=== PATIENT | female | born 1965 | race Caucasian/White ===

== ENCOUNTER 2020-10-14 06:30 | Emergency (ER) | payer MEDICAID, MEDICARE ==
--- NOTE | 2020-10-14 07:21 | EDM.PDOC ---
ED HPI GENERAL MEDICAL PROBLEM - General Chief Complaint: Upper Extremity Injury/Pain Stated Complaint: PATIENT FELL AND HURT HER SHOULDER Time Seen by Provider: 10/14/20 07:00 Source of Information: Reports: Patient - History of Present Illness INITIAL COMMENTS - FREE TEXT/NARRATIVE: c/o L shoulder pain at 3a pt got out of bed to void, walking across the dark room she tripped on the cord to the fan, pt fell into the wall striking her L shoulder, has had pain at the proximal humerus lives with , drove herself to ED, not working outside house, not ill otherwise Left Shoulder Pain Score (Numeric/FACES): 5 - Related Data Allergies Allergy/AdvReac Type Severity Reaction Status Date / Time IVP DYE Allergy Swelling Uncoded 06/23/16 19:08 Home Meds: Home Meds Citalopram Hydrobromide [Celexa] 40 mg PO DAILY 06/23/16 [History] metFORMIN [Glucophage] 1,000 mg PO BID 06/23/16 [History] Insulin Glargine,Hum.Rec.Anlog [Lantus Solostar] 20 units SQ BID 10/14/20 [History] Rosuvastatin [Crestor] 5 mg PO BEDTIME 10/14/20 [History] busPIRone [Buspar] 10 mg PO BID 10/14/20 [History] lisinopriL [Lisinopril] 5 mg PO DAILY 10/14/20 [History] Past Medical History Cardiovascular History: Reports: High Cholesterol, Hypertension Respiratory History: Reports: Asthma [employer]YING [employer]ATOR History: Reports: Musculoskeletal History: Reports: Neck Pain, Chronic Psychiatric History: Reports: Anxiety, Depression Endocrine/Metabolic History: Reports: Diabetes, Type II - Past Surgical History Female Surgical History: Reports: Section Social & Family History - Tobacco Use Tobacco Use Status *Q: Current Every Day Tobacco User Years of Tobacco use: 40 Packs/Tins Daily: 1 - Caffeine Use Caffeine Use: Reports: Coffee, Soda - Alcohol Use Days Per Week of Alcohol Use: 7 Number of Drinks Per Day: 6 Total Drinks Per Week: 42 - Recreational Drug Use Recreational Drug Use: No Review of Systems - Review of Systems Review Of Systems: See Below Constitutional: Reports: No Symptoms Eyes: Reports: No Symptoms Ears: Reports: No Symptoms Nose: Reports: No Symptoms Mouth/Throat: Reports: No Symptoms Respiratory: Reports: No Symptoms Cardiovascular: Reports: No Symptoms GI/Abdominal: Reports: No Symptoms Genitourinary: Reports: No Symptoms Musculoskeletal: Reports: Shoulder Pain Skin: Reports: No Symptoms Neurological: Reports: No Symptoms Psychiatric: Reports: No Symptoms ED EXAM, GENERAL - Physical Exam Exam: See Below General Appearance: Alert, WD/WN, Other (alcohol on breath) Head: Atraumatic Neck: Normal Inspection, Supple Respiratory/Chest: No Respiratory Distress, Lungs Clear Cardiovascular: Regular Rate, Rhythm Extremities: Other (holds left elbow against her side, no swell/ecchymosis/deformity, has 1-2+ tender just below L acromion, L clavicle and AC joint NT, acromion NT) Skin Exam: Warm, Dry, Intact, Normal Color, No Rash Course - Vital Signs Last Recorded V/S: Last Vital Signs Temp 37.6 C 10/14/20 06:46 Pulse 97 10/14/20 06:46 Resp 18 10/14/20 06:46 BP 151/69 H 10/14/20 06:46 Pulse Ox 97 10/14/20 06:46 - Orders/Labs/Meds Orders: Active Orders 24 hr Category Date Time Status Shoulder Comp Lt [CR] Stat Exams 10/14/20 07:13 Ordered - Re-Assessments/Exams Free Text/Narrative Re-Assessment/Exam: 10/14/20 08:23 fx of surgical neck of humerus, minimally displaced, at base of greater tuberosity images reviewed with pt images pushed to pt aware that she cannot drive until cleared by ortho to do so there is alcohol on her breath today pt has a low grade fever of uncertain clinical sig as pt has no infectious sxs, pt aware that she made need to see her PCP if she develops additional sxs Departure - Departure Time of Disposition: 08:08 Disposition: Home, Self-Care 01 Condition: Good Clinical Impression: Fracture of humerus, proximal, left, closed - Discharge Information *PRESCRIPTION DRUG MONITORING PROGRAM REVIEWED*: Not Applicable *COPY OF PRESCRIPTION DRUG MONITORING REPORT IN PATIENT CRYSTAL: Not Applicable Instructions: Humerus Fracture Treated With Immobilization Referrals: PCP,None [Primary Care Provider] - Forms: ED Department Discharge Additional Instructions: Keep the arm as immobile as possible. You may want to sleep in a semi-reclined position. You can put a small pad between the upper arm and chest wall as needed. It is best to allow the weight of the arm to provide downward traction on the shoulder as this allows for optimum alignment (that is, keeps the long axis of the humerus as straight as possible). You do not want to lift the elbow up to the shoulder as this may cause a bend or curve at the location of the fracture. Use ice for 10 minutes every 1-2 hours as needed for discomfort. For pain, take ibuprofen 200 mg 3 tabs and acetaminophen 500 mg 2 tabs 4 times a day for 1-2 days. Go to orthopedics clinic in [place] in 2-3 days for further evaluation and further recommendations. [facility] - [address] ([place]) Make an Appointment [phone] [place] [address], [place] [address] HOURS Friday - Friday: 8 am - 5 pm WALK-IN HOURS Friday - Friday: 8 am - 4:30 pm Sepsis Event Note (ED) - Evaluation Sepsis Screening Result: No Definite Risk - Focused Exam Vital Signs: Vital Signs Temp Pulse Resp BP Pulse Ox 10/14/20 06:46 37.6 C 97 18 151/69 H 97 - My Orders Last 24 Hours: My Active Orders 10/14/20 07:13 Shoulder Comp Lt [CR] Stat - Assessment/Plan Last 24 Hours: My Active Orders 10/14/20 07:13 Shoulder Comp Lt [CR] Stat
[2020-10-14 09:00] VITALS: BP 132/58; PULSE 90
== END 2020-10-14 08:50 | disposition home or self-care (01) ==
LOC: FB.ED 06:30
DX: S42.212A Unspecified displaced fracture of surgical neck of left humerus, initial encounter for closed fracture (principal); E78.00 Pure hypercholesterolemia, unspecified; I10 Essential (primary) hypertension; E11.9 Type 2 diabetes mellitus without complications; Z79.4 Long term (current) use of insulin; Z91.041 Radiographic dye allergy status; Z79.899 Other long term (current) drug therapy; Z72.0 Tobacco use; W18.09XA Striking against other object with subsequent fall, initial encounter
CPT/HCPCS: 73030-LT; 99283-25